=== PATIENT | male | born 2000 | race Caucasian/White ===

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

== ENCOUNTER 2021-03-03 01:27 | Emergency (ER) | payer OTHER ==
[~2021-03-03] VITALS: Ht 167.6 cm; Wt 55.9 kg
[~2021-03-03 01:27] MED LIST: CETI10TA18 PO; FEXO180T15 PO
--- NOTE | 2021-03-03 01:54 | NUR ---
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
[2021-03-03] MEDS ORDERED: MAALOX/HYOSCYAMINE/LIDOCAINE 45 ML BTL PO ONE (02:00)
--- NOTE | 2021-03-03 02:00 | NUR ---
assessment made. ERP at bedside.
[2021-03-03] MEDS ORDERED: MAALOX/HYOSCYAMINE/LIDOCAINE 45 ML BTL ONE (02:23)
--- NOTE | 2021-03-03 02:27 | NUR ---
patient medicated. awaiting lab draw.
[2021-03-03 02:40] LABS: BASOPHILS % (AUTO) 0 % (0-1); EOSINOPHILS % (AUTO) 1 % (1-7); LYMPHOCYTES % (AUTO) 12 % (22-44); MD NO; MEAN CORPUSCULAR HEMOGLOBIN 29.1 pg (27.5-34.5); MEAN PLATELET VOLUME 7.6 fL (7.4-10.4); MONOCYTES % (AUTO) 3 % (2-9); NEUTROPHILS % (AUTO) 85 % (42-75); PLATELET COUNT 339 x10^3/uL (130-400); RED BLOOD COUNT 4.61 x10^6/uL (4.38-5.82); RED CELL DISTRIBUTION WIDTH 15.1 % (9.4-14.8)
[2021-03-03 02:52] LABS: ALANINE AMINOTRANSFERASE 23 U/L (12-78); ALBUMIN 3.9 g/dL (3.4-5.0); ANION GAP 5 mmol/L (5-15); CALCIUM 8.3 mg/dL (8.5-10.1); CHLORIDE 110 mmol/L (98-107); CREATININE 0.88 mg/dL (0.7-1.3)
[2021-03-03 02:55] LABS: ALKALINE PHOSPHATASE 125 U/L (45-117); BILIRUBIN,TOTAL 0.9 mg/dL (0.2-1.0); TOTAL PROTEIN 7.1 g/dL (6.4-8.2)
--- NOTE | 2021-03-03 03:22 | NUR ---
ERP at bedside for re-evaluation.
--- NOTE | 2021-03-03 03:30 | NUR ---
patient startes feeling much better. discharged with prescription and instruction. verbalized understanding.
[2021-03-03 03:32] VITALS: BP 131/78
== END 2021-03-03 03:34 | disposition home or self-care (01) ==
LOC: ED 03:28
DX: K29.00 Acute gastritis without bleeding (principal)
CPT/HCPCS: 36415; 80053; 83690; 85025; 99283

== ENCOUNTER 2021-04-04 20:22 | Emergency (ER) | payer OTHER ==
[~2021-04-04] VITALS: Ht 165.1 cm; Wt 54.6 kg
--- NOTE | 2021-04-04 20:35 | NUR ---
PT AMBULATED TO ROOM FROM TRIAGE. PT STATED THAT HE WAS PLAYING FOOTBALL AND FELL ON HIS RIGHT SHOULDER. DEFORMITY NOTED TO RIGHT CLAVICLE. PT STATED THAT HE IS UNABLE TO MOVE HIS ARM/SHOULDER WITHOUT PAIN. PT DENIES ANY NUMBNESS/TINGLING. CMS INTACT.
--- NOTE | 2021-04-04 21:00 | NUR ---
REPORT FROM JOSE ALBERTO REICH
[2021-04-04] MEDS ORDERED: HYDROcodone/APAP 5/325 TABLET PO ONE (21:30)
[2021-04-04] MEDS ORDERED: HYDROcodone/APAP 5/325 TABLET ONE (21:44)
[2021-04-04 21:49] VITALS: BP 111/74
--- NOTE | 2021-04-04 21:50 | NUR ---
break rn: Patient/family given discharge instructions and they have confirmed that they understand the instructions. Patient ambulatory with steady gait. NAD, all questions answered appropriately, denies additional needs at this time. No personal belongings left in room after discharge.
== END 2021-04-04 21:51 | disposition home or self-care (01) ==
LOC: ED 21:40
DX: S42.021A Displaced fracture of shaft of right clavicle, initial encounter for closed fracture (principal); F17.200 Nicotine dependence, unspecified, uncomplicated; W18.30XA Fall on same level, unspecified, initial encounter; Y93.89 Activity, other specified; Y92.410 Unspecified street and highway as the place of occurrence of the external cause; Y99.0 Civilian activity done for income or pay
CPT/HCPCS: 99283